=== PATIENT | female | born 1990 | race Caucasian/White ===

== ENCOUNTER → 2017-07-28 | Outpatient (CLI) | payer OTHER ==
[2017-07-28 08:04] LABS: BASO # 0.1 10*3/uL (0.0-0.1); BASO % 0.8 % (0.0-1.0); EOS # 0.2 10*3/uL (0.0-0.4); EOS % 2.5 % (1.0-4.0); HEMATOCRIT 43.5 % (37.0-47.0); HEMOGLOBIN 14.4 g/dl (12.0-16.0); LYMPH # 2.1 10*3/uL (1.3-4.4); MEAN CELL VOLUME 89.9 fl (81.0-99.0); MEAN CORPUSCULAR HGB 29.8 pg (27.0-31.0); MEAN CORPUSCULAR HGB CONC 33.1 g/dl (33.0-37.0); MEAN PLATELET VOLUME 9.6 fl (9.6-12.3); MONO # 0.4 10*3/uL (0.1-1.0); MONO % 5.7 % (3.0-9.0); NEUT # 4.7 10*3/uL (2.3-7.9); NEUT % 62.5 % (47.0-73.0); PLATELET COUNT AUTOMATED 395 10*3/uL (130-400); RED BLOOD COUNT 4.84 10*6/uL (4.10-5.10); RED CELL DISTRI WIDTH 13.1 % (0-14.5); WHITE BLOOD COUNT 7.5 10*3/uL (4.8-10.8)
[2017-07-28 08:38] LABS: ALBUMIN 3.8 gm/dl (3.1-4.5); ALKALINE PHOSPHATASE 74 U/L (45-117); BUN 10 mg/dl (7-24); CHLORIDE 106 mmol/L (98-107); CHOLESTEROL 167 mg/dL (<200); CREATININE 0.86 mg/dL (0.55-1.02); HDL CHOLESTEROL 27 mg/dl (40-60); LDL CHOLESTEROL 96 mg/dL (9-159); POTASSIUM 3.9 mmol/L (3.5-5.1); SGOT/AST 17 IU/L (3-35); SGPT/ALT 26 U/L (12-78); SODIUM 140 mmol/L (136-145); TOTAL PROTEIN 7.2 gm/dL (6.4-8.2); TRIGLYCERIDES 221 mg/dl (<150); VLDL CHOLESTEROL 44 mg/dL (6-40)
== END | disposition home or self-care (01) ==
LOC: LAB 07:20
PROVIDERS: Internal Medicine
DX: I10 Essential (primary) hypertension (principal); E66.09 Other obesity due to excess calories

== ENCOUNTER 2018-10-28 06:35 | Inpatient (IN) | payer OTHER ==
[2018-10-28] VITALS (10 sets, daily range): BP systolic 130–156; BP diastolic 79–102
--- NOTE | ~2018-10-28 | EKG ---
[place], [place] ELECTROCARDIOGRAM REPORT NAME: SUDHA CHEN UNIT #: [id number] ROOM: 531 DOCTOR: JANES DRAFT REPORT BIRTHDATE: [birth year] [facility] Test Date: 2018-10-28 Test Time: 08:27:36 Pat Name: SUDHA CHEN Department: Room: 531 Gender: F [employer] Collections Analyst: Salena Gonzales : 1990 Requested By: TERESA JO Order Number: [id number] Reading MD: Jose Enrique Barnard MD Measurements Intervals [place] Rate: 119 P: 30 [place]: 122 QRS: 29 QRSD: 74 T: 6 QT: 310 QTc: 437 Interpretive Statements Sinus tachycardia Borderline T wave abnormalities Electronically Signed On 10-29-2018 18:07:21 PST by Jose Enrique Barnard MD CM:[email or web address]:ELECTROCARDIOGRAM REPORT [id number] TERESA BLUE DRAFT REPORT TERESA JO DO
--- NOTE | 2018-10-28 07:15 | NUR ---
REPORT FROM LETI GUERRERO AT THIS TIME. PATIENT STATES PAIN IS IN THE UPEPR ABDOMINAL AREAS. PATIENT STATES THAT SHE HAS BEEN TAKING ASPIRIN SINCE SHE HAD HER LAST BABY. STATES THAT HER OB DOCTOR TOLD HER THAT TAKING A ASPIRIN A DAY WOULD HELP WITH PREVENTING PRE-ECLAMPSIA FOR THE NEXT TIME THEY WOULD HAVE A CHILD.
[2018-10-28 07:31] LABS: BILIRUBIN 1+ (NEGATIVE); BLOOD 1+ (NEGATIVE); CLARITY SL CLOUDY (CLEAR); COLOR YELLOW (YELLOW); GLUCOSE NEGATIVE (NEGATIVE); KETONE TRACE (NEGATIVE); LEUKO ESTERASE 1+ (NEGATIVE); NITRITE NEGATIVE (NEGATIVE); SPECIFIC GRAVITY 1.025 (1.005-1.030); UROBILINOGEN 0.2 E.U./dl (0.2-1.0)
[2018-10-28 07:41] LABS: BACTERIA 4+; EPITHELIAL CELLS 20-30
[2018-10-28 08:30] LABS: BASO # 0.1 10*3/uL (0.0-0.1); BASO % 0.4 % (0.0-1.0); EOS # 0.2 10*3/uL (0.0-0.4); EOS % 1.6 % (1.0-4.0); HEMOGLOBIN 14.8 g/dl (12.0-16.0); LYMPH # 1.4 10*3/uL (1.3-4.4); LYMPH % 10.1 % (27.0-41.0); MEAN CELL VOLUME 90.2 fl (81.0-99.0); MEAN CORPUSCULAR HGB 30.3 pg (27.0-31.0); MEAN CORPUSCULAR HGB CONC 33.6 g/dl (33.0-37.0); MEAN PLATELET VOLUME 9.6 fl (9.6-12.3); MONO # 0.9 10*3/uL (0.1-1.0); MONO % 6.4 % (3.0-9.0); NEUT # 10.9 10*3/uL (2.3-7.9); PLATELET COUNT AUTOMATED 351 10*3/uL (130-400); RED BLOOD COUNT 4.88 10*6/uL (4.10-5.10); WHITE BLOOD COUNT 13.4 10*3/uL (4.8-10.8)
[2018-10-28 08:39] LABS: ACT PARTIAL THROMBO TIME 21.7 SECONDS (20.8-31.5)
[2018-10-28 08:46] LABS: ALBUMIN 3.5 gm/dl (3.1-4.5); ALKALINE PHOSPHATASE 60 U/L (45-117); BUN 8 mg/dl (7-24); CHLORIDE 104 mmol/L (98-107); CREATININE 0.98 mg/dL (0.55-1.02); LIPASE 125 U/L (73-393); POTASSIUM 3.9 mmol/L (3.5-5.1); SGOT/AST 15 IU/L (3-35); SGPT/ALT 29 U/L (12-78); SODIUM 137 mmol/L (136-145); TOTAL PROTEIN 7.6 gm/dL (6.4-8.2)
[2018-10-28 08:48] LABS: B-hCG (QUALITATIVE) NEGATIVE (NEGATIVE)
--- NOTE | 2018-10-28 10:45 | NUR ---
A 27, admitted to 5E, under the services of TONY Li DO with a diagnosis of SPLENITIS. Chief complaint is PAIN TO LUQ. Patient arrived via stretcher from ER. Monitor applied. Initial assessment completed. Vital signs taken and recorded. TONY LI DO notified of admission to the unit. Orders received. See assessment for past medical history, medications and allergies. Patient and/or family oriented to unit. [address] visitation policy reviewed. Clothing/patient valuable form completed. EDWARD MURILLO
--- NOTE | 2018-10-28 11:05 | NUR ---
PATIENT STATES THAT THE MORPHINE DID HELP WITH PAIN ALMOST GONE AT THIS TIME.
--- NOTE | 2018-10-28 14:08 | NUR ---
JAYE AWARE OF CONSULT PER DR SAVAGE.
--- NOTE | 2018-10-28 16:34 | NUR ---
MEDICATED WITH PO NORCO ORDERED PER PT REQUEST FOR C/O LUQ PAIN RATED 4/10. PREVIOUS DOSE WAS EFFECTIVE. PT ALSO ASKED FOR M.O.M. FOR C/O NO BM SINCE YESTERDAY.
--- NOTE | 2018-10-28 16:50 | NUR ---
CONSULT MESSAGE LEFT FOR DR MARTINEZ.
--- NOTE | 2018-10-28 20:55 | NUR ---
Dr. Barrientos called with orders received. Will see in AM.
[2018-10-29] VITALS: BP 127/92
--- NOTE | 2018-10-29 03:12 | NUR ---
Requested and medicated with Vidalia at 2049 for complaints of LUQ pain rated a 3/10. Vidalia effective to decrease pain and allow to rest quietly. Requested and medicated with Vidalia at 229 for complaints of LUQ pain rated a 4/10. Will continue to monitor.
[2018-10-29 06:35] LABS: BASO # 0.1 10*3/uL (0.0-0.1); BASO % 0.6 % (0.0-1.0); EOS # 0.2 10*3/uL (0.0-0.4); EOS % 2.2 % (1.0-4.0); HEMATOCRIT 41.8 % (37.0-47.0); HEMOGLOBIN 13.4 g/dl (12.0-16.0); LYMPH # 1.9 10*3/uL (1.3-4.4); LYMPH % 17.6 % (27.0-41.0); MEAN CELL VOLUME 92.7 fl (81.0-99.0); MEAN CORPUSCULAR HGB 29.7 pg (27.0-31.0); MEAN CORPUSCULAR HGB CONC 32.1 g/dl (33.0-37.0); MEAN PLATELET VOLUME 9.8 fl (9.6-12.3); MONO # 0.7 10*3/uL (0.1-1.0); MONO % 6.4 % (3.0-9.0); NEUT # 7.8 10*3/uL (2.3-7.9); NEUT % 72.9 % (47.0-73.0); PLATELET COUNT AUTOMATED 325 10*3/uL (130-400); RED BLOOD COUNT 4.51 10*6/uL (4.10-5.10); WHITE BLOOD COUNT 10.7 10*3/uL (4.8-10.8)
[2018-10-29 06:44] LABS: ALBUMIN 3.2 gm/dl (3.1-4.5); ALKALINE PHOSPHATASE 52 U/L (45-117); BUN 6 mg/dl (7-24); CHLORIDE 111 mmol/L (98-107); CHOLESTEROL 144 mg/dL (<200); CREATININE 0.76 mg/dL (0.55-1.02); HDL CHOLESTEROL 26 mg/dl (40-60); LDL CHOLESTEROL 84 mg/dL (9-159); PHOSPHOROUS 2.7 mg/dL (2.5-4.9); POTASSIUM 4.2 mmol/L (3.5-5.1); SGOT/AST 13 IU/L (3-35); SGPT/ALT 27 U/L (12-78); SODIUM 141 mmol/L (136-145); TOTAL PROTEIN 6.9 gm/dL (6.4-8.2); TRIGLYCERIDES 171 mg/dl (<150); VLDL CHOLESTEROL 34 mg/dL (6-40)
[2018-10-29 08:00] VITALS: BP 130/80
[2018-10-29 08:57] LABS: VITAMIN D, 25-HYDROXY 20.3 ng/mL (30-100)
--- NOTE | 2018-10-29 09:00 | NUR ---
Patient resting quietly with no c/o discomfort. Respirations easy and regular. Vital signs stable. No overt distress. EDWARD MURILLO
--- NOTE | 2018-10-29 10:56 | NUR ---
Cork Molder in to talk to patient. Patient states lives at HOME with FAMILY. There are SOME steps in the home. Physician: NONE AT THIS TIME Pharmacy: [facility] Home health services: NONE Patient's level of ADLs: INDEPENDENT Patient has working utilities: YES DME: NONE Follow-up physician's appointment after d/c: WILL ESTABLISH WITH ONE ON DISCHARGE Does patient want to access PORTAL?: NO Discharge plan STATES SHE LIVES AT HOME AND IS INDEPENDENT IN CARE. DENIES ANY HOME NEEDS AT THIS TIME. WILL CONTINUE TO FOLLOW. LATRICE HARRIS
[2018-10-29 12:00] VITALS: BP 139/95
--- NOTE | 2018-10-29 12:29 | NUR ---
MEDICATED WITH PO NORCO ORDERED PER PT REQUEST FOR C/O 310 LUQ PAIN.
--- NOTE | 2018-10-29 15:48 | NUR ---
MEDICATION EFFECTIVE FOR PAIN.
[2018-10-29 16:00] VITALS: BP 150/99
--- NOTE | 2018-10-29 16:21 | NUR ---
PT WANTS TO LEAVE AFTER BEING TOLD THIS AM BY THAT SHE CAN LEAVE. DR FORTUNE NOTIFIED THAT SHE IS ASKING ABOUT DISCHARGE.
[2018-10-29 20:00] VITALS: BP 138/88
--- NOTE | 2018-10-29 21:07 | NUR ---
MEDICATED WITH PO RESTORIL ORDERED PER PT REQUEST FOR C/O INSOMNIA.
--- NOTE | 2018-10-29 22:38 | NUR ---
MEDICATED WITH PO NORCO ORDERED PER PT REQUEST FOR C/O 4/10 LUQ PAIN.
--- NOTE | 2018-10-30 | NUR ---
PT RESTING IN BED. NO ACUTE DISTRESS NOTED. RESPS EASY AND REG. PT REFUSING VITALS AT THIS TIME. CALL LIGHT IN REACH.
--- NOTE | 2018-10-30 05:40 | NUR ---
PT C/O ABD PAIN 5/10. PRN MEDS GIVEN. WILL CONTINUE TO MONITOR.
[2018-10-30 08:00] VITALS: BP 151/91
--- NOTE | 2018-10-30 11:37 | NUR ---
PATIENT RECEIVED NORCO FOR PAIN IN ABDOMEN RATED 6/10.
[2018-10-30 12:00] VITALS: BP 141/91
[2018-10-30] MEDS ORDERED: FLAGYL500 MG PO (12:30)
[2018-10-30] MEDS ORDERED: OMNICEF300 MG PO (12:30)
--- NOTE | 2018-10-30 14:08 | NUR ---
Discharge instructions reviewed with patient/family. Patient receptive and verbalizes understanding. Follow-up care arranged. Written instructions given to patient/family. PATIENT AMBULATED FROM FLOOR WITH . NO S/S OF DISTRESS. FREDERICK MCKEON
== END 2018-10-30 14:08 | disposition home or self-care (01) | DRG 872 ==
LOC: ED 06:35 → 5E 10:04 → EDHOLD 10:04 → 5E 10:16
PROVIDERS: Internal Medicine; Student in an Organized Health Care Education/Training Program; ADMIT Emergency Medicine
DX: A41.9 Sepsis, unspecified organism (principal); K92.1 Melena; D73.89 Other diseases of spleen; H40.053 Ocular hypertension, bilateral; R82.71 Bacteriuria; Z88.0 Allergy status to penicillin; Z88.1 Allergy status to other antibiotic agents; Z91.040 Latex allergy status; Z82.0 Family history of epilepsy and other diseases of the nervous system; Z83.79 Family history of other diseases of the digestive system; Z82.49 Family history of ischemic heart disease and other diseases of the circulatory system

== ENCOUNTER → 2018-12-01 | Outpatient (CLI) | payer OTHER ==
[~2018-12-01] MED LIST: FLAGYL500 MG PO; OMNICEF300 MG PO
== END | disposition home or self-care (01) ==
LOC: CT 02:19
DX: K25.0 Acute gastric ulcer with hemorrhage (principal)

== ENCOUNTER → 2019-08-31 | Outpatient (CLI) | payer OTHER | END | disposition home or self-care (01) | LOC: US 11:00 | DX: Z34.81 Encounter for supervision of other normal pregnancy, first trimester (principal); Z3A.12 12 weeks gestation of pregnancy; N94.89 Other specified conditions associated with female genital organs and menstrual cycle ==

== ENCOUNTER → 2019-09-10 | Outpatient (CLI) | payer OTHER ==
[2019-09-10 11:58] LABS: BASO # 0.1 10*3/uL (0.0-0.1); BASO % 0.4 % (0.0-1.0); EOS # 0.1 10*3/uL (0.0-0.4); EOS % 0.9 % (1.0-4.0); HEMATOCRIT 40.9 % (37.0-47.0); HEMOGLOBIN 13.5 g/dl (12.0-16.0); LYMPH # 1.7 10*3/uL (1.3-4.4); LYMPH % 13.5 % (27.0-41.0); MEAN CELL VOLUME 90.9 fl (81.0-99.0); MONO # 0.4 10*3/uL (0.1-1.0); MONO % 3.4 % (3.0-9.0); NEUT # 10.3 10*3/uL (2.3-7.9); NEUT % 81.3 % (47.0-73.0); PLATELET COUNT AUTOMATED 357 10*3/uL (130-400); RED CELL DISTRI WIDTH 12.8 % (0-14.5); WHITE BLOOD COUNT 12.7 10*3/uL (4.8-10.8)
[2019-09-10 12:10] LABS: BUN 6 mg/dl (7-24); CREATININE 0.72 mg/dL (0.55-1.02); SGOT/AST 14 IU/L (3-35); SGPT/ALT 31 U/L (12-78)
[2019-09-11 07:07] LABS: HEPATITIS B SURFACE AG Negative (Negative); HEPATITIS C AB <0.1 (0.0-0.9)
== END | disposition home or self-care (01) ==
LOC: LAB 11:18
PROVIDERS: Specialist
DX: O99.212 Obesity complicating pregnancy, second trimester (principal); Z3A.13 13 weeks gestation of pregnancy; Z36.9 Encounter for antenatal screening, unspecified

== ENCOUNTER → 2019-09-21 | Outpatient (CLI) | payer OTHER | END | disposition home or self-care (01) | LOC: LAB 07:35 | DX: O99.810 Abnormal glucose complicating pregnancy (principal) ==

== ENCOUNTER → 2019-10-06 | Outpatient (CLI) | payer OTHER | END | disposition home or self-care (01) | LOC: LAB 07:38 | DX: Z36.9 Encounter for antenatal screening, unspecified (principal); Z3A.13 13 weeks gestation of pregnancy ==

== ENCOUNTER → 2019-10-19 | Outpatient (CLI) | payer OTHER | END | disposition home or self-care (01) | LOC: US 11:16 | DX: Z36.9 Encounter for antenatal screening, unspecified (principal); Z3A.19 19 weeks gestation of pregnancy ==

== ENCOUNTER → 2019-11-09 | Outpatient (CLI) | payer OTHER | END | disposition home or self-care (01) | LOC: LAB 14:18 → US 14:30 | DX: Z04.89 Encounter for examination and observation for other specified reasons (principal); Z3A.22 22 weeks gestation of pregnancy ==

== ENCOUNTER → 2019-12-21 | Outpatient (CLI) | payer OTHER | END | disposition home or self-care (01) | LOC: LAB 00:12 | DX: Z34.90 Encounter for supervision of normal pregnancy, unspecified, unspecified trimester (principal); Z3A.26 26 weeks gestation of pregnancy ==

== ENCOUNTER → 2020-01-04 | Outpatient (CLI) | payer OTHER | END | disposition home or self-care (01) | LOC: US 00:57 | DX: O32.1XX0 Maternal care for breech presentation, not applicable or unspecified (principal); O99.213 Obesity complicating pregnancy, third trimester; Z3A.30 30 weeks gestation of pregnancy ==

== ENCOUNTER → 2020-01-05 | Outpatient (CLI) | payer OTHER | END | disposition home or self-care (01) | LOC: RESCLI 01:32 | DX: Z34.93 Encounter for supervision of normal pregnancy, unspecified, third trimester (principal); Z3A.29 29 weeks gestation of pregnancy; D17.9 Benign lipomatous neoplasm, unspecified; J45.909 Unspecified asthma, uncomplicated; I10 Essential (primary) hypertension; H40.059 Ocular hypertension, unspecified eye; Z98.890 Other specified postprocedural states; Z79.82 Long term (current) use of aspirin; Z79.899 Other long term (current) drug therapy; Z88.1 Allergy status to other antibiotic agents ==

== ENCOUNTER → 2021-02-16 | Outpatient (CLI) | payer OTHER ==
[2021-02-16 07:50] LABS: HEMATOCRIT 45.3 % (37.0-47.0); MEAN CELL VOLUME 90.4 fl (81.0-99.0); MEAN CORPUSCULAR HGB 29.7 pg (27.0-31.0); MEAN CORPUSCULAR HGB CONC 32.9 g/dl (33.0-37.0); MEAN PLATELET VOLUME 9.5 fl (9.6-12.3); RED BLOOD COUNT 5.01 10*6/uL (4.10-5.10); RED CELL DISTRI WIDTH 12.7 % (0-14.5); WHITE BLOOD COUNT 7.5 10*3/uL (4.8-10.8)
[2021-02-16 08:19] LABS: ALBUMIN 3.9 gm/dl (3.1-4.5); ALKALINE PHOSPHATASE 69 U/L (45-117); BUN 9 mg/dl (7-24); CHLORIDE 109 mmol/L (98-107); CHOLESTEROL 170 mg/dL (<200); CREATININE 0.91 mg/dL (0.55-1.02); HDL CHOLESTEROL 26 mg/dl (40-60); LDL CHOLESTEROL 95 mg/dL (9-159); POTASSIUM 4.1 mmol/L (3.5-5.1); SGOT/AST 15 IU/L (3-35); SGPT/ALT 22 U/L (12-78); SODIUM 140 mmol/L (136-145); TOTAL PROTEIN 7.4 gm/dL (6.4-8.2); TRIGLYCERIDES 244 mg/dl (<150); VLDL CHOLESTEROL 49 mg/dL (6-40)
== END | disposition home or self-care (01) ==
LOC: LAB 07:20
PROVIDERS: ATTEND Physician Assistant
DX: R53.83 Other fatigue (principal); E16.2 Hypoglycemia, unspecified

== ENCOUNTER → 2021-02-28 | Outpatient (CLI) | payer OTHER ==
[2021-02-28 07:51] LABS: HEMATOCRIT 43.9 % (37.0-47.0); MEAN CELL VOLUME 91.1 fl (81.0-99.0); MEAN CORPUSCULAR HGB 29.3 pg (27.0-31.0); MEAN CORPUSCULAR HGB CONC 32.1 g/dl (33.0-37.0); MEAN PLATELET VOLUME 9.7 fl (9.6-12.3); RED BLOOD COUNT 4.82 10*6/uL (4.10-5.10); WHITE BLOOD COUNT 9.3 10*3/uL (4.8-10.8)
[2021-03-02 14:08] LABS: ACTIVATED PROTEIN C 2.8 ratio (2.2-3.5)
== END | disposition home or self-care (01) ==
LOC: LAB 07:26
PROVIDERS: ATTEND Physician Assistant
DX: E16.2 Hypoglycemia, unspecified (principal); R53.83 Other fatigue; Z82.49 Family history of ischemic heart disease and other diseases of the circulatory system